=== PATIENT | male | born 1945 | race Native Hawaiian/Other Pacific Islander ===

== ENCOUNTER 2016-09-05 13:34 | Outpatient (CLI) | payer OTHER ==
[2016-09-05 14:16] LABS: PLATELET COUNT 241 K/uL (142-355)
[2016-09-05 14:39] LABS: POTASSIUM 4.1 mmol/L (3.6-5.2); SODIUM 138 mmol/L (136-145)
== END 2016-09-05 19:16 | disposition home or self-care (01) ==
LOC: LAB 13:34
PROVIDERS: Nurse Practitioner Family
DX: I10 Essential (primary) hypertension (principal); E78.5 Hyperlipidemia, unspecified; Z00.00 Encounter for general adult medical examination without abnormal findings; Z79.899 Other long term (current) drug therapy; E55.9 Vitamin D deficiency, unspecified
CPT/HCPCS: 80053; 80061; 82306; 82607; 83036; 84436; 84443; 85027

== ENCOUNTER 2017-04-18 13:56 | Outpatient (CLI) | payer OTHER ==
[2017-04-18 14:11] LABS: PLATELET COUNT 264 K/uL (142-355)
[2017-04-18 17:05] LABS: POTASSIUM 4.1 mmol/L (3.6-5.2); SODIUM 138 mmol/L (136-145)
== END 2017-04-18 14:55 | disposition home or self-care (01) ==
LOC: LAB 13:56
PROVIDERS: Nurse Practitioner Family
DX: Z00.00 Encounter for general adult medical examination without abnormal findings (principal); Z79.899 Other long term (current) drug therapy; Z51.81 Encounter for therapeutic drug level monitoring; E78.4 Other hyperlipidemia; I10 Essential (primary) hypertension; E11.9 Type 2 diabetes mellitus without complications
CPT/HCPCS: 80053; 80061; 83036; 84436; 84443; 85027

== ENCOUNTER 2017-10-17 13:20 | Outpatient (CLI) | payer OTHER ==
[2017-10-17 14:51] LABS: PLATELET COUNT 222 K/uL (142-355)
[2017-10-17 16:25] LABS: POTASSIUM 4.5 mmol/L (3.6-5.2)
== END 2017-10-17 20:11 | disposition home or self-care (01) ==
LOC: LAB 13:20
PROVIDERS: Nurse Practitioner Family
DX: Z00.00 Encounter for general adult medical examination without abnormal findings (principal); Z79.899 Other long term (current) drug therapy; Z51.81 Encounter for therapeutic drug level monitoring; E78.4 Other hyperlipidemia; E11.9 Type 2 diabetes mellitus without complications
CPT/HCPCS: 80053; 80061; 83036; 84154; 84436; 84443; 85027